=== PATIENT | male | born 1970 | race Hispanic/Latino ===

== ENCOUNTER 2018-07-23 18:59 | Emergency (ER) | payer SELFPAY ==
[2018-07-23] MEDS ORDERED: Acetaminophen/Codeine 30-300mg Tablet ONE (19:16)
--- NOTE | 2018-07-23 19:49 | RAD ---
RIGHT WRIST THREE VIEWS: 07/23/18 HISTORY: Right wrist injury. FINDINGS: Scaphoid waist and ulnar styloid are intact. Mild to moderate degenerative changes about the wrist. N o acute fracture or dislocation. IMPRESSION: No acute osseous abnormalities are demonstrated. POS: [facility]
== END 2018-07-23 20:00 | disposition home or self-care (01) ==
LOC: NAV ERS 18:59
DX: S63.501A Unspecified sprain of right wrist, initial encounter (principal); W20.8XXA Other cause of strike by thrown, projected or falling object, initial encounter